=== PATIENT | male | born 1990 | race Caucasian/White ===

== ENCOUNTER 2024-04-16 18:27 | Inpatient (IN) | payer OTHER ==
[~2024-04-16] VITALS: Ht 195.6 cm; Wt 87.0 kg
[2024-04-16] MEDS ORDERED: Aspirin 325 MG Tab PO ONE (19:20)
[2024-04-16 19:39] LABS: Hemoglobin 13.9 g/dL (13.5-17.5); Mean Corpuscular HGB 30.8 pg (26.0-34.0); Mean Corpuscular HGB Conc 35.6 g/dL (31.5-36.5); Mean Corpuscular Volume 87 fL (80-100); Mean Platelet Volume 9.7 fL (9.1-12.4); Platelet Count 139 K/mm3 (150-400); RDW Coefficient Variation 12.1 % (11.7-14.2); RDW Standard Deviation 38.2 fL (35.1-46.3); Red Blood Cell Count 4.51 M/mm3 (4.30-5.90); White Blood Cell Count 19.16 K/mm3 (4.00-11.30)
[2024-04-16 19:56] LABS: BAND PERCENT MAN 11 % (0-8); BASOPHILS PERCENT MAN 0 % (0-2); EOSINOPHILS PERCENT MAN 0 % (0-6); LYMPHOCYTES ABSOLUTE MAN 0.38 K/mm3 (0.84-5.20); LYMPHOCYTES PERCENT MAN 2 % (21-46); MONOCYTES ABSOLUTE MAN 0.19 K/mm3 (0.16-1.47); MONOCYTES PERCENT MAN 1 % (4-13); NEUTROPHILS ABSOLUTE MAN 18.58 K/mm3 (1.96-9.15); SEG NEUTROPHILS PERCENT MAN 86 % (41-73); TOTAL CELLS COUNTED 100
[2024-04-16 19:58] LABS: Albumin, Blood 3.5 g/dL (3.4-5.0); Albumin/Globulin Ratio 0.8 (0.8-1.8); Bun/Creatinine Ratio 21.4 (12.0-20.0); Calcium, Blood 8.8 mg/dL (8.5-10.1); Creatinine, Blood 1.17 mg/dL (0.60-1.20); Globulin, Blood 4.2 g/dL (2.2-4.0); Potassium, Blood 3.7 mmol/L (3.5-5.5); Total Protein, Blood 7.7 g/dL (6.4-8.2)
[2024-04-16] MEDS ORDERED: Azithromycin 500 MG in NS 250 ML IV ONE (20:55)
[2024-04-16] MEDS ORDERED: Ketorolac Tromethamine 30mg Vial IV ONE (21:10)
[2024-04-16 21:43] LABS: Influenza A, PCR NEGATIVE (NEGATIVE); Influenza B, PCR NEGATIVE (NEGATIVE); Resp Syncytial Virus, PCR NEGATIVE (NEGATIVE); SARS-Cov-2 (COVID-19) PCR, MMC NEGATIVE (NEGATIVE)
[2024-04-16] MEDS ORDERED: Ondansetron HCl 2 MG / ML 2ML Vial IV ONE (22:15)
[2024-04-16] MEDS ORDERED: Ondansetron HCl 2 MG / ML 2ML Vial IV PRN (22:30)
[2024-04-16] MEDS ORDERED: Acetaminophen 325 MG TABLET PO PRN (22:40)
[2024-04-16] MEDS ORDERED: Ketorolac Tromethamine 30mg Vial IV PRN (22:40)
[2024-04-16] MEDS ORDERED: FentaNYL Citrate 50 MCG/ML 2 ML Injection IV PRN (22:40)
[2024-04-16] MEDS ORDERED: NS 1,000 ML IV SCH (22:40)
[2024-04-17] VITALS (38 sets, daily range): BP systolic 73–116; BP diastolic 51–83
[2024-04-17] LABS: Source, Urine Clean Catch
[2024-04-17 00:02] LABS: Bilirubin, Urine Neg (Neg); Blood, Urine 4+ (Neg); Glucose Qualitative, Urine Neg (Neg); Ketones, Urine Neg (Neg); Leukocyte Esterase, Urine Neg (Neg); Nitrite, Urine Neg (Neg); Protein, Urine 3+ (Neg); Urobilinogen, Urine 3+ (Normal); pH, Urine 6.5 (5.0-8.0)
[2024-04-17 00:30] LABS: Appearance, Urine Clear (Clear); Color, Urine Yellow (P-Yellow)
[2024-04-17 00:32] LABS: Bacteria Not Seen /hpf; Red Blood Cells, Urine 0-2 /hpf (0-2); Squamous Epithelial Cells Not Seen /hpf (Few); White Blood Cells, Urine Not Seen /hpf (0-5)
[2024-04-17] MEDS ORDERED: NS 1,000 ML IV ONE ×3 (00:45→09:07)
[2024-04-17] MEDS ORDERED: CefTRIAXone Sodium 1,000 MG in NS 100 ML IV SCH (02:00)
[2024-04-17] MEDS ORDERED: Nitroglycerin 2 MG/20 ML BTL ONE (08:54)
[2024-04-17] MEDS ORDERED: NS 250 ML IV ONE (08:54)
[2024-04-17] MEDS ORDERED: Heparin Sodium 1000 Units/ML 10ML MDV ONE (08:54)
[2024-04-17] MEDS ORDERED: Verapamil HCL 2.5 MG/ML 2ML Injection ONE (08:54)
[2024-04-17] MEDS ORDERED: Aspirin 81 MG Chew PO SCH (09:00)
[2024-04-17] MEDS ORDERED: Midazolam HCl 1MG / ML 2ML Vial ONE (09:07)
[2024-04-17] MEDS ORDERED: FentaNYL Citrate 50 MCG/ML 2 ML Injection ONE (09:08)
[2024-04-17 09:12] LABS: Hematocrit 34.5 % (37.0-53.0); Hemoglobin 12.1 g/dL (13.5-17.5); Mean Corpuscular HGB 30.9 pg (26.0-34.0); Mean Corpuscular HGB Conc 35.1 g/dL (31.5-36.5); Mean Corpuscular Volume 88 fL (80-100); Mean Platelet Volume 10.5 fL (9.1-12.4); Platelet Count 140 K/mm3 (150-400); RDW Coefficient Variation 12.3 % (11.7-14.2); RDW Standard Deviation 39.6 fL (35.1-46.3); Red Blood Cell Count 3.92 M/mm3 (4.30-5.90); White Blood Cell Count 15.31 K/mm3 (4.00-11.30)
[2024-04-17 09:21] LABS: Alanine Aminotransfer (ALT/SGP 18 U/L (12-78); Albumin, Blood 2.9 g/dL (3.4-5.0); Albumin/Globulin Ratio 0.7 (0.8-1.8); Alk Phos 79 U/L (50-136); Anion Gap 10 mmol/L (3-11); Aspartate Aminotrans (AST/SGOT 114 U/L (12-37); Bilirubin, Total 1.4 mg/dL (0.1-1.0); Blood Urea Nitrogen 23 mg/dL (8-24); Bun/Creatinine Ratio 21.1 (12.0-20.0); CHOL/HDL RATIO 3.8; CO2, Blood 26 mmol/L (21-32); Chloride, Blood 108 mmol/L (98-108); Cholesterol 98 mg/dL (50-200); Creatinine, Blood 1.09 mg/dL (0.60-1.20); Globulin, Blood 3.9 g/dL (2.2-4.0); Glomerular Filtration Rate 92 (60-); Glucose, Blood 97 mg/dL (70-99); HDL Cholesterol 26 mg/dL (>39); LDL/HDL RATIO 1.9; Low Density Lipoprotein Chol 50 mg/dL (0-110); Potassium, Blood 3.5 mmol/L (3.5-5.5); Sodium, Blood 140 mmol/L (136-145); Total Protein, Blood 6.8 g/dL (6.4-8.2); Triglycerides 111 mg/dL (30-140); Very Low Density Lipoprot Chol 22 mg/dL (6-28)
[2024-04-17 09:39] LABS: BAND PERCENT MAN 5 % (0-8); BASOPHILS PERCENT MAN 0 % (0-2); EOSINOPHILS PERCENT MAN 0 % (0-6); LYMPHOCYTES ABSOLUTE MAN 1.22 K/mm3 (0.84-5.20); LYMPHOCYTES PERCENT MAN 8 % (21-46); MONOCYTES ABSOLUTE MAN 0.76 K/mm3 (0.16-1.47); MONOCYTES PERCENT MAN 5 % (4-13); NEUTROPHILS ABSOLUTE MAN 13.31 K/mm3 (1.96-9.15); SEG NEUTROPHILS PERCENT MAN 82 % (41-73); TOTAL CELLS COUNTED 100
--- NOTE | 2024-04-17 10:20 | NUR ---
ARRIVAL TO UNIT: PATIENT ARRIVED TO UNIT VIA STRETCHER. PATIENT STABLE ON ROOM AIR WITH SPO2 >96%. PATIENT DENIES SHORTNESS OF BREATH. PATIENT REPORTS HAVING DIFFICULTY WITH TAKING A FULL BREATH RELATED TO DISCOMFORT. REPORTS PRODUCTIVE COUGH AND STUFFY NOSE. VITAL SIGNS STABLE WITH MAPS >65. HR IN THE 60S-70S. PATIENT DENIES CHEST PAIN. PATIENT DENIES NUMBNESS/TINGLING THROUGHOUT. TR BAND IN PLACE ON RIGHT WRIST. ARM BOARD IN PLACE. PUNCTURE SITE HAS SCANT AMOUNT OF SANGINOUS DRAINAGE THAT IS UNCHANGED SINCE PLACEMENT OF TR BAND PER [facility] RN. PATIENT HAS C/M/S IN RIGHT FINGERS. PATIENT DENIES NAUSEA.
[2024-04-17] MEDS ORDERED: NS 250 ML IV PRN (13:35)
[2024-04-17] MEDS ORDERED: Lactated Ringer's 1,000 ML IV SCH (13:50)
[2024-04-17] MEDS ORDERED: Lactated Ringer's 1,000 ML IV ONE (13:55)
--- NOTE | 2024-04-17 14:06 | NUR ---
"Spiritual Care | Pt. Request Pt. is awake in bed and welcomes my visit. Pt. is pleasant. Facilitate a life review where Pt. speaks about the nature of his mal. Consider personal matters of love, mal, and belief. Pt. displays evidence of being a positive, hopeful individual. Prayed with Pt. Pt. verbalized gratitude for the spiritual care visit and welcomed this hazmat cdl driver to return."
[2024-04-17 14:56] LABS: Adenovirus Not Detected (NOT DETECT); Bordetella pertussis Not Detected (NOT DETECT); Chlamydophila pneumoniae Not Detected (NOT DETECT); Coronavirus 229E Not Detected (NOT DETECT); Coronavirus HKU1 Not Detected (NOT DETECT); Coronavirus NL63 Not Detected (NOT DETECT); Coronavirus OC43 Not Detected (NOT DETECT); Human Metapneumovirus Not Detected (NOT DETECT); Human Rhinovirus/Enterovirus Detected (NOT DETECT); Influenza A/2009-H1 Not Detected (NOT DETECT); Influenza A/H1 Not Detected (NOT DETECT); Influenza A/H3 Not Detected (NOT DETECT); Influenza B Not Detected (NOT DETECT); Mycoplasma pneumoniae Not Detected (NOT DETECT); Parainfluenza Virus 1 Not Detected (NOT DETECT); Parainfluenza Virus 2 Not Detected (NOT DETECT); Parainfluenza Virus 3 Not Detected (NOT DETECT); Parainfluenza Virus 4 Not Detected (NOT DETECT); Respiratory Syncytial Virus Not Detected (NOT DETECT); SARS-Cov-2 (COVID-19), BioFire Not Detected (NOT DETECT)
[2024-04-17 15:25] LABS: Acinetobacter baumannii DNA Not Detected copy/mL (NOT DETECT); Enterobacter cloacae DNA Not Detected copy/mL (NOT DETECT); Escherichia coli DNA Not Detected copy/mL (NOT DETECT); Haemophilus influenzae DNA Not Detected copy/mL (NOT DETECT); Klebsiella aerogenes DNA Not Detected copy/mL (NOT DETECT); Klebsiella oxytoca DNA Not Detected copy/mL (NOT DETECT); Klebsiella pneumoniae DNA Not Detected copy/mL (NOT DETECT); Moraxella catarrhalis DNA Not Detected copy/mL (NOT DETECT); Proteus sp DNA Not Detected copy/mL (NOT DETECT); Pseudomonas aeruginosa DNA Not Detected copy/mL (NOT DETECT); Serratia marcescens DNA Not Detected copy/mL (NOT DETECT)
[2024-04-17 15:26] LABS: Adenovirus DNA Not Detected (NOT DETECT); Chlamydia pneumonia Not Detected (NOT DETECT); Human Coronavirus RNA Not Detected (NOT DETECT); Human Metapneumovirus RNA Not Detected (NOT DETECT); Legionella pneumophila Not Detected (NOT DETECT); Mycoplasma pneumoniae Not Detected (NOT DETECT); Rhinovirus+Enterovirus RNA Detected (NOT DETECT); Staphylococcus aureus DNA Not Detected copy/mL (NOT DETECT); Streptococcus agalactiae DNA Not Detected copy/mL (NOT DETECT); Streptococcus pneumoniae DNA Detected Bin 10^6 copy/mL (NOT DETECT); Streptococcus pyogenes DNA Not Detected copy/mL (NOT DETECT)
[2024-04-17 15:27] LABS: Influenza virus A RNA Not Detected (NOT DETECT); Influenza virus B RNA Not Detected (NOT DETECT); Parainfluenza virus RNA Not Detected (NOT DETECT); Respiratory syncytial Vir RNA Not Detected (NOT DETECT)
[2024-04-17] MEDS ORDERED: Enoxaparin 40 MG/0.4 ML SYR SC SCH (19:00)
--- NOTE | 2024-04-17 19:30 | NUR ---
ASSUMPTION OF CARE ASSUMED CARE OF PATIENT AT 1900, BEDSIDE SHIFT REPORT RECEIVED FROM DAYSHIFT RN. PT RESTING IN BED, ALERT AND ORIENTED X4. PT ANSWERS QUESTIONS APPROPRIATELY, FOLLOWS DIRECTION WHEN PROMPTED AND IS ABLE TO MAKE HIS NEEDS KNOWN. PT INDEPENDENT IN THE ROOM, MOVES ALL EXTREMITIES EQUALLY BILATERALLY. HR 60-80'S SINUS, MAP >65. PT DENIES CP OR PRESSURE. PT ON RA, OXYGEN SATURATION >95%, DENIES SOB OR DIFFICULTY BREATHING. ABDOMEN SOFT, BOWEL TONES ACTIVE IN ALL FOUR QUADRANTS, PT DENIES N/V. PT USES URINAL TO VOID. PIV IN PLACE TO LFA AND LAC SL. BED IN LOWEST POSITION, CALL LIGHT WITHIN REACH, CARE CONTINUES.
--- NOTE | 2024-04-17 19:33 | NUR ---
SHIFT SUMMARY: NEURO: PATIENT ALERT AND ORIENTED X4. DENIES NUMBNESS/TINLGING THROUGHOUT. FOLLOWING RIGHT WRIST PRECAUTIONS. PATIENT STEADY ON FEET. PATIENT DENIES DIZZINESS. CARDIAC: PATIENT DENIED CHEST PAIN. VITALS STABLE WITH SBP IN THE 90S-100S. MAPS >65. STRONG PULSES THROUGHOUT. SMALL HEMATOMA DEVELOPED DISTAL TO THE TR BAND DURING THE INITIAL RECOVERY. SECOND TR BAND PLACED OVER HEMATOMA AND THE TWO TR BANDS WERE RECOVERED TOGETHER SLOWLY THROUGHOUT THE AFTERNOON/EVENING. PATIENT MAINTAINED C/M/S IN THE RIGHT HAND. RESPIRATORY: PATIENT STABLE ON ROOM AIR WITH SPO2>96%. PATIENT DENIES SHORTNESS OF BREATH, BUT REPORTS SOME DISCOMFORT WHEN TRYING TO ACHIEVE A FULL BREATH. PATIENT HAS A PRODUCTIVE COUGH WITH YELLOW/WHITE SPUTUM. FLUTTER VALVE AT BEDSIDE. GI/: PATIENT DENIED NAUSEA THROUGHOUT THE SHIFT. PATIENT TOLERATING PO INTAKE WITHOUT NAUSEA OR DISCOMFORT. PATIENT VOIDING WITHOUT DIFFICULTY. PSYCHSOCIAL: PATIENT IS CALM AND COOPERATIVE. PATIENT RECEPTIVE TO EDUCATION AND INSTRUCTIONS.
[2024-04-17] MEDS ORDERED: Lactobacil 2-S.Thermo-Bifido 1 1 Cap PO SCH (21:00)
[2024-04-17] MEDS ORDERED: Azithromycin 500 MG in NS 250 ML IV SCH (21:00)
[2024-04-18] VITALS (13 sets, daily range): BP systolic 86–119; BP diastolic 57–104
--- NOTE | 2024-04-18 00:20 | NUR ---
PT UPDATE TR BAND DEFLATED AND REMOVED WITHOUT COMPLICATION THIS SHIFT. SITE CLEANED, TEGADERM IN PLACE. ARMBOARD REPLACED ON PT WRIST, INSTRUCTED PT NOT TO USE RIGHT WRIST OR PUT ANY PRESSURE ON IT. PT AGREEABLE TO INSTRUCTION. CARE CONTINUES.
[2024-04-18] MEDS ORDERED: CefTRIAXone Sodium 2,000 MG in NS 100 ML IV SCH (02:00)
[2024-04-18 03:24] LABS: BASOPHILS ABSOLUTE AUTO 0.04 K/mm3 (0.00-0.23); BASOPHILS PERCENT AUTO 0 % (0-2); EOSINOPHILS ABSOLUTE AUTO 0.23 K/mm3 (0.00-0.68); EOSINOPHILS PERCENT AUTO 2 % (0-6); Hematocrit 34.4 % (37.0-53.0); Hemoglobin 12.1 g/dL (13.5-17.5); IMMATURE GRAN ABSOLUTE AUTO 0.16 K/mm3 (0.00-0.10); IMMATURE GRAN PERCENT AUTO 2 % (0-1); LYMPHOCYTES ABSOLUTE AUTO 1.45 K/mm3 (0.84-5.20); LYMPHOCYTES PERCENT AUTO 15 % (21-46); MONOCYTES ABSOLUTE AUTO 0.72 K/mm3 (0.16-1.47); MONOCYTES PERCENT AUTO 8 % (4-13); Mean Corpuscular HGB 30.8 pg (26.0-34.0); Mean Corpuscular HGB Conc 35.2 g/dL (31.5-36.5); Mean Corpuscular Volume 88 fL (80-100); NEUTROPHILS ABSOLUTE AUTO 6.89 K/mm3 (1.96-9.15); NEUTROPHILS PERCENT AUTO 73 % (41-73); Platelet Count 145 K/mm3 (150-400); RDW Coefficient Variation 12.1 % (11.7-14.2); RDW Standard Deviation 39.1 fL (35.1-46.3); Red Blood Cell Count 3.93 M/mm3 (4.30-5.90); White Blood Cell Count 9.49 K/mm3 (4.00-11.30)
[2024-04-18 03:46] LABS: Albumin, Blood 2.7 g/dL (3.4-5.0); Albumin/Globulin Ratio 0.7 (0.8-1.8); Bilirubin, Total 0.5 mg/dL (0.1-1.0); Bun/Creatinine Ratio 18.3 (12.0-20.0); Creatinine, Blood 0.87 mg/dL (0.60-1.20); Globulin, Blood 3.9 g/dL (2.2-4.0); Phosphorus, Blood 3.3 mg/dL (2.5-4.9); Potassium, Blood 3.8 mmol/L (3.5-5.5); Total Protein, Blood 6.6 g/dL (6.4-8.2)
--- NOTE | 2024-04-18 05:26 | NUR ---
SHIFT SUMMARY NO ACUTE CHANGES THIS SHIFT. PT CONTINUES TO REST IN BED, ALERT AND ORIENTED X4. PT ANSWERS QUESTIONS APPROPRIATELTY, FOLLOWS DIRECTION WHEN PROMPTED AND IS AB LE TO MAKE HIS NEEDS KNOWN. PT INDEPENDENT IN THE ROOM. PT AMBULATED WITH THIS RN AROUND ICU AND PCU WITH TELE IN PLACE. PT TOLERATED WELL, DENIED DIZZINESS, LIGHTHEADEDNESS, CP OR PRESSURE. ALSO DENIED SOB OR DIFFICULTY BREATHING. HR 60-70'S, INCREASED TO 100-110'S WHILE AMBULATING, SBP 80-100'S, MAP >65. PT ON RA, OXYGEN SATURATION >95%. ABDOMEN SOFT, BOWEL TONES ACTIVE IN ALL FOUR QUADRANTS. PT USES URINAL TO VOID. PIV IN PLACE TO RAC AND RFA SL. BED IN LOWEST POSITON, CALL LIGHT WIHTIN REACH, CARE CONTINUES.
[2024-04-18] MEDS ORDERED: Pantoprazole Sodium 20 MG Tab PO SCH (06:00)
--- NOTE | 2024-04-18 07:00 | NUR ---
ASSUMPTION OF CARE PT IS A&OX4 WITH PLEASANT AFFECT. HE IS ON RA WITH SPO2 >95%, DENIES SOB. HE IS SINUS ON MONITOR WITH RATE 60S-70S. SBP 80S-90S, MAP >65. PT DENIES CP. R RADIAL SITE HAS SMALL RED AREA AROUND PUNCTURE SITE AND SMALL BRUISE DISTAL TO SITE. CLEAR TEGADERM AND ARMBOARD IN PLACE. PT AMBULATORY IN ROOM WITH STEADY GAIT. BED IN LOW POSITION, CALL LIGHT WITHIN REACH.
--- NOTE | 2024-04-18 10:43 | NUR ---
Pt. is awake in bed. Pt. is pleasant and verbalized his expectations to see his cardiac physician today with the hopes of being discharged home. Listen with empathy and a calming presence. Pt. displays a strong sense of personal mal and verbalized some specific ways he has seen God move in his life since his admission. Listen again with interest and an encouraging presence. Prayed with Pt. Pt. verbalized gratitude for the spiritual care visit.
[2024-04-18] MEDS ORDERED: Clopidogrel Bisulfate 75 MG Tab PO SCH (12:30)
[2024-04-18] MEDS ORDERED: Aspirin 81 MG TabEC PO SCH (12:30)
[2024-04-18] MEDS ORDERED: ASPI81CH PO (15:34)
[2024-04-18] MEDS ORDERED: CLOP75 PO (15:35)
[2024-04-18] MEDS ORDERED: VSL#3 112.5B1 EACH PO (15:36)
[2024-04-18] MEDS ORDERED: AMOCLA875 PO (15:36)
--- NOTE | 2024-04-18 16:27 | NUR ---
DISCHARGE PT HAS DENIED SOB AND CP THROUGHOUT THE DAY. REPORTS FEELING WELL TODAY. R RADIAL SITE REMAINS UNCHANGED SINCE AM ASSESSMENT. VSS THROUGHOUT THE DAY. PT PROVIDED DISCHARGE EDUCATION. PRESCRIPTIONS FAXED TO [facility]. FOLLOW UP APPOINTMENT WITH PCP SCHEDULED FOR TOMORROW AT 10:00. RECORDS FAXED OVER. ATTEMPTED TO SCHEDULE FOLLOW UP CARDIOLOGY APPOINTMENT, OFFICE STATES THEY WILL CALL HIM TO FINALIZE APPOINTMENT. PT DRESSED SELF, GATHERED ALL BELONGINGS. PT AMBULATED OUT TO ER ENTRANCE WITH STEADY GAIT. PT LEFT DEPARTMENT AT 1615.
== END 2024-04-18 16:15 | disposition home or self-care (01) | DRG 871 ==
LOC: ER 18:27 → ICUE 18:28 → ERHOLD 18:28 → ICUE 04-17 09:50
PROVIDERS: Family Medicine; Internal Medicine; Student in an Organized Health Care Education/Training Program; ADMIT Internal Medicine
PROC: 3E03329 Introduction of Other Anti-infective into Peripheral Vein, Percutaneous Approach (ICD-10-PCS; 2024-04-16)
PROC: B2111ZZ Fluoroscopy of Multiple Coronary Arteries using Low Osmolar Contrast (ICD-10-PCS; principal; 2024-04-17)
PROC: 4A023N7 Measurement of Cardiac Sampling and Pressure, Left Heart, Percutaneous Approach (ICD-10-PCS; 2024-04-17)
DX: A41.89 Other specified sepsis (principal); I21.A1 Myocardial infarction type 2; J18.9 Pneumonia, unspecified organism; I40.0 Infective myocarditis; R04.2 Hemoptysis; R65.20 Severe sepsis without septic shock; B97.89 Other viral agents as the cause of diseases classified elsewhere; B97.10 Unspecified enterovirus as the cause of diseases classified elsewhere; R73.9 Hyperglycemia, unspecified
CPT/HCPCS: 0202U; 0241U; 36415; 71046; 71260; 76937; 80053; 80061; 81001; 82550; 83036; 83605; 83735; 83880; 84100; 84145; 84484; 85025; 85379; 85651; 87040; 87633; 93005; 93010; 93306; 93454; 94664; 94760; 96365-59; 96367-59; 96375-59; 99152; 99285-25; A9270; C1769; C1894; C9113; G0378; J0456; J0696; J1644; J1650; J1885; J2250; J2405; J3010; J7030; J7050; J7120; Q9967